=== PATIENT | male | born 1995 | race African-American/Black ===

== ENCOUNTER 2025-09-11 09:21 | Outpatient (REF) | payer MEDICAID, OTHER, SELFPAY ==
[2025-09-11 14:14] LABS: MANUAL DIFF FLAG NO
[2025-09-11 14:25] LABS: Hematocrit 45.5 % (42.0-52.0); Hemoglobin 14.4 g/dl (14.0-18.0); Imm Gran Abs Auto 0.01 X10*3/uL (0.00-0.03); Imm Gran Pct Auto 0.3 % (0.0-0.4); Lymphocytes Absolute Auto 1.1 X10*3/uL (1.2-4.9); Mean Corpuscular HGB Conc 31.6 g/dl (31.0-36.0); Mean Corpuscular Hemoglobin 26.6 pg (27.0-33.0); Mean Corpuscular Volume 84.1 fL (80.0-98.0); NRBC Abs Auto 0.000 X10*3/uL (0.0-0.012); NRBC Pct Auto 0.0 /100WBC (0.0-0.2); Platelet Count 199 X10*3/uL (160-400); Red Blood Count 5.41 X10*6/uL (4.60-5.80); White Blood Count 3.4 X10*3/uL (4.8-10.8)
[2025-09-11 18:37] LABS: Alanine Aminotransferase 26 U/L (0-40); Albumin Level 5.1 g/dL (3.5-5.0); Alkaline Phosphatase 46 U/L (39-117); Anion Gap 12 (12-20); Aspartate Amino Transferase 35 U/L (5-37); Blood Urea Nitrogen 12 mg/dL (9-16); Calcium 9.6 mg/dL (8.4-10.2); Carbon Dioxide 27 mmol/L (22-29); Chloride 104 mmol/L (96-108); Cholesterol 205 mg/dL (<200); Estimated Glomerular Filt Rate > 60; HDL Cholesterol 62 mg/dL (>40); Potassium 4.2 mmol/L (3.3-5.1); Sodium 139 mmol/L (135-145); Total Protein 8.3 g/dL (6.5-8.0); Triglycerides 63 mg/dL (<150)
[2025-09-12 08:57] LABS: HIV Num 1 0.06 S/CO (0.00-0.99); ~HepC Num1 0.22 S/CO (0.00-0.79); ~Hepatitis C Antibody Nonreactive (Nonreactive)
== END 2025-09-11 09:22 | disposition home or self-care (01) ==
LOC: HO.CHCLDS 09:21
DX: Z11.4 Encounter for screening for human immunodeficiency virus [HIV] (principal); Z11.3 Encounter for screening for infections with a predominantly sexual mode of transmission; R00.2 Palpitations; Z76.89 Persons encountering health services in other specified circumstances
CPT/HCPCS: 36415; 80053; 80061; 84443; 85025; 86592; 86803; 87389

== ENCOUNTER → 2025-09-29 09:43 | Outpatient (REF) | payer OTHER, SELFPAY ==
--- OUTSIDE RECORDS SUMMARY | 2025-09-29 10:34 | XMS_ITS | Clinical Summary ---
Author Organization [employer] Address [address] [facility] [address] [place] [address] Care Team Providers Care Apprise Counselor Name Role Phone Jewels Fonseca CNP Primary Care Provider [phone] Allergies No known active allergies Medications No known medications Active Problems No known active problems Encounters Date Type Department Care Team Description 09/10/2025 2:00 PM EST Office Visit [facility] [address] [place] [address] Jewels Fonseca CNP Encounter to establish care (Primary Dx); Palpitations; Encounter for immunization 09/10/2025 Travel 09/09/2025 Travel 09/09/2025 Telephone [facility] [address] [place] [address] Lurdes Gauthier [place] chart prep 08/03/2025 Telephone [facility] [address] [place], [place] [phone] Socrates Soto MD CHW - New Patient Assistance from Last 3 Months Immunizations Immunization Administration Dates Next Due HepB-CpG 09/10/2025 Influenza, seasonal, injectable, preservative fr ee 09/10/2025 Tdap 09/10/2025 Social History Tobacco Use Types Packs/Day Years Used Date Smoking Tobacco: Never Smokeless Tobacco: Never Tobacco Cessation:Counseling Given: Not Answered Alcohol Use Standard Drinks/Week Comments Not Currently 1 (1 standard drink = 0.6 oz pur e alcohol) Depression Answer Date Recorded Patient Health Questionnaire-9 Score 7 09/10/2025 Patient Health Questionnaire-9 Score 7 09/10/2025 Last PHQ-9: Questionnaire Data Not on file 1 11/11/2024 Housing Stability Answer Date Recorded What is your housing situation today? I have indira olson 09/10/[address] you li ve. Do you have problems with any of the following? I am not sure 09/10/2025 Food Insecurity Answer Date Recorded Within the past 12 months, y ou worried that your food would run out before you got money to buy more: Never True 09/10/2025 Within the past 12 months,th e food you bought just didn't last and you didn't have enough money to get more: Never True 01/2025 Transportation Answer Date Recorded In the past 12 months, has l ack of transportation kept you from medical appts, meetings, work or from getting things needed for daily living? No 09/10/2025 Utilities Answer Date Recorded In the past 12 months, has t he electric, gas, oil or water company threatened to shut off services in your home? No 09/10/2025 Depression Answer Date Recorded Patient Health Questionnaire-2 Score 0 09/10/2025 Internet Access Answer Date Recorded Internet Access Q1 Yes 09/10/2025 Internet Access Q2 Not on file 09/10/2025 Sex and Gender Information Value Date Recorded Sex Assigned at Male 09/09/2025 9:28 AM EST Legal Sex Male 1:12 PM EDT Gender Identity Male 09/09/2025 9:28 AM EST Sexual Orientation Straight 09/09/2025 9: 28 AM EST Last Filed Vital Signs Vital Sign Reading Time Taken Comments Blood Pressure 132/76 09/10/2025 2:05 PM EST Pulse 74 09/10/2025 2:05 PM EST Temperature 36.2 C (97.1 F) 09/10/2025 2:05 PM EST Respiratory Rate 16 09/10/2025 2:05 PM EST Oxygen Saturation 96% 09/10/2025 2:05 PM EST Inhaled Oxygen Concentration - - Weight 64.9 kg (143 lb) 09/10/2025 2:05 PM EST Height 172.7 cm (5' 8 ) 09/10/2025 2:05 PM EST Body Mass Index 21.74 09/10/2025 2:05 PM EST Plan of Treatment Upcoming Encounters Date Type Department Care Team (Late st Contact Info) Description 10/13/2025 2:00 PM EST Immunization [facility] [address] [place] [address] 11/11/2025 9:30 AM EST Office Visit [facility] [address] [place] [address] FonsecaJewels, [employer] [address] [place] [address] Health Maintenance Due Date Last Done Comments Family Planning (PISQ) 2008 HPV Vaccines (1 - Male 3-dos e series) 2008 Hepatitis B Vaccines (2 of 2 - CpG 2-dose series) 10/08/2025 09/10/2025 Alcohol/Substance Use Screening 09/10/2026 09/10/2025 COVID-19 Vaccine (1 - 2024-2 6 season) 2026 Postponed from 06/08 (Patient Refused) Depression Screening 09/10/2026 09/10/2025, 09/10/2025 Disability Screening 09/10/2026 09/10/2025 SDOH Screening 09/10/2026 09/10/2025 Tobacco Screening 09/10/2026 09/10/2025 DTaP/Tdap/Td Vaccines (2 - T d or Tdap) 09/10/2035 09/10/2025 Zoster Vaccines (1 of 2) 2043 RSV Patients and Patients Aged 60 years or older (1 - 1-dose 75+ series) 2068 Influenza Vaccine Completed 09/10/2025 HIV Screening Completed 09/11/2025 Hepatitis C Screening Completed 09/11/2025 HIB Vaccines Aged Out No longer eligi ble based on patient's age to complete this topic Hepatitis A Vaccines Aged Out No long er eligible based on patient's age to complete this topic IPV Vaccines Aged Out No longer eligi ble based on patient's age to complete this topic Meningococcal B Vaccine Aged Out No l onger eligible based on patient's age to complete this topic Meningococcal Vaccine Aged Out No monik frankie eligible based on patient's age to complete this topic Pneumococcal Vaccine: Pediatrics (0 to 5 Years) and At-Risk Patients (6 to 49) Years Aged Out No longer eligible b ased on patient's age to complete this topic RSV under 20 months Aged Out No longe r eligible based on patient's age to complete this topic Rotavirus Vaccines Aged Out No longer eligible based on patient's age to complete this topic Procedures Procedure Name Priority Date/Time Associated Diagnosis Comments TSH W/REFLEX TO FT4 Routine 09/11/2025 9 :32 AM EST Palpitations RPR (MONITOR) W/REFL TITER Routine 09/11/2025 9:32 AM EST Encounter to establish care COMPREHENSIVE METABOLIC PANEL Routine 09/11/2025 9:32 AM EST Encounter to establish care HEPATITIS C AB W/REFL TO HCV RNA, QN, PCR Routine 09/11/2025 9:32 AM EST Encounter to establish care HIV 1/2 ANTIGEN/ANTIBODY, FOURTH GENERATION W/RFL Routine 09/11/2025 9:32 AM EST Encounter to establish care LIPID PANEL, STANDARD Routine 09/11/2025 9:32 AM EST Encounter to establish care CBC WITH AUTO DIFFERENTIAL Routine 09/11/2025 9:26 AM EST Encounter to establish care from Last 3 Months Results * TSH W/Reflex to FT4 (09/11/2025 9:32 AM EST) TSH reflex Free T4 1.54 0.32 - 4.0 uIU/mL [facility] Blood Venous blood specimen / Unknown 09/11/2025 9:32 AM EST 09/11/2025 2:09 PM EST [facility] LAB BLOOD ORDERABLES Melony l Result [facility] [address] [place] [phone] * Hepatitis C Antibody with Reflex to HCV, RNA, Quantitative, Real-Time PCR (09/11/2025 9:32 AM EST) Hepatitis C Antibody Nonreactive Nonreactive [facility] Comment:Antibodies to HCV no t detected; does not exclude early acuteHCV infection. Blood Venous blood specimen / Unknown 09/11/2025 9:32 AM EST 09/11/2025 2:09 PM EST [facility] LAB BLOOD ORDERABLES Melony l Result Performing Organization Address [facility] Co de Phone Number [facility] [address] [place] [phone] * RPR (Monitor) with Reflex to??Titer (09/11/2025 9:32 AM EST) RPR (Monitor) w/Refl Titer NON-REACTI VE NON-REACT MATA [facility] Comment:THIS TEST WAS PERFOR MED AT:[employer] [place] [phone] OLIVERA MD Rapid Plasma Reagin Ab Titer TNP [facility] Blood Venous blood specimen / Unknown 09/11/2025 9:32 AM EST 09/11/2025 2:09 PM EST [facility] LAB BLOOD ORDERABLES Melony l Result Performing Organization Address [facility] de Phone Number [facility] [address] [place] [phone] * HIV-1/2 Antigen and Antibodies, Fourth Generation, with Reflexes (09/11/2025 9:32 AM EST) HIV AB/AG Nonreactive Nonreactive [facility] Comment:HIV-1 p24 Ag and/or HIV-1/HIV-2 Ab not detected.A test result that is nonreactive does not exclude thepossibility of exposure to or infection with HIV-1 and/orHIV-2. Nonreactive results in this assay for individualswith prior exposure to HIV-1 and/or HIV-2 may be due toantigen and antibody levels that are below the limit ofdetection of this assay.The [employer] HIV Ag/Ab Combo assay result andsupplemental assay results should be interpreted inconjunction with the patient's clinical presentation,history and other laboratory results. If the results areinconsistent with clinical evidence, additional testing issuggested to confirm the result. Blood Venous blood specimen / Unknown 09/11/2025 9:32 AM EST 09/11/2025 2:09 PM EST [facility] LAB BLOOD ORDERABLES Melony l Result Performing Organization Address [facility] de Phone Number [facility] [address] [place] [phone] * (ABNORMAL) Lipid Panel, Standard (09/11/2025 9:32 AM EST) Triglycerides 63 <150 mg/dL [facility] Comment:Desirable Triglyceri de: less than 150 mg/dLBorderline High Triglyceride 150-199 mg/dLHigh Triglyceride: 200-499 mg/dLVery High Triglyceride: greater than or equal to 5OO mg/dL Cholesterol 205(H) <200 mg/dL [facility] Comment:Desirable Cholestero l: less than 200 mg/dLBorderline High Cholesterol: 200-239 mg/dLHigh Cholesterol: greater than 239 mg/dL LDL Cholesterol Calculated 131(H) <100 mg/dL [facility] Comment:Desirable LDL: less than 100 mg/dLNear Optimal/Above Optimal LDL: 110- 129 mg/dLBorderline High LDL: 130-159 mg/dLHigh LDL: 160-189 mg/dLVery High LDL: greater than or equal to 190 mg/dL HDL Cholesterol 62 >40 mg/dL [facility] Comment:Desirable HDL: great er than 40 mg/dL Note: This HDL assay may give artificially low results in patients with liver disease. Blood Venous blood specimen / Unknown 09/11/2025 9:32 AM EST 09/11/2025 2:09 PM EST [facility] LAB BLOOD ORDERABLES Melony l Result Performing Organization Address [facility] Co de Phone Number [facility] [address] [place] [phone] * (ABNORMAL) Comprehensive Metabolic Panel (09/11/2025 9:32 AM EST) Sodium 139 135 - 145 mmol/L [facility] Potassium 4.2 3.3 - 5.1 mmol/L [facility] Comment:Slight Hemolysis.Int erpret result with caution. Chloride 104 96 - 108 mmol/L [facility] Carbon Dioxide 27 22 - 29 mmol/L [facility] Anion Gap 12 12 - 20 [facility] Urea Nitrogen (BUN) 12 9 - 16 mg/dL [facility] Creatinine, Serum 0.90 0.5 - 1.4 mg/dL [facility] Estimated Glomerular Filt Rate >60 [facility] Comment:Chronic Kidney Disea se: Estimated GFR < 60 mL/min/[id number] Kidney Disease: Estimated GFR < 15 mL/min/1.73m2 Glucose 79 60 - 115 mg/dL [facility] Calcium 9.6 8.4 - 10.2 mg/dL [facility] Bilirubin, Total 1.7(H) 0.0 - 1.0 mg/dL [facility] Comment:Slight Icterus. Aspartate Amino Transferase 35 5 - 37 U/L [facility] Comment:Slight Hemolysis.Int erpret result with caution. Alanine Aminotransferase 26 0 - 40 U/L [facility] Total Protein 8.3(H) 6.5 - 8.0 g/dL [facility] Albumin Level 5.1(H) 3.5 - 5.0 g/dL [facility] Alkaline Phosphatase 46 39 - 117 U/L [facility] Blood Venous blood specimen / Unknown 09/11/2025 9:32 AM EST 09/11/2025 2:09 PM EST Jewels Fonseca [facility] LAB BLOOD ORDERABLES Melony l Result [facility] [address] [place] [phone] * (ABNORMAL) CBC auto differential (09/11/2025 9:26 AM EST) White Blood Count 3.4(L) 4.8 - 10.8 X10*3/uL [facility] Red Blood Count 5.41 4.60 - 5.80 X10*6/uL [facility] Hemoglobin 14.4 14.0 - 18.0 g/dl [facility] Hematocrit 45.5 42.0 - 52.0 % [facility] Mean Corpuscular Volume 84.1 80.0 - 98.0 fL [facility] Mean Corpuscular Hemoglobin 26.6(L) 27.0 - 33.0 pg [facility] Mean Corpuscular HGB Conc 31.6 31.0 - 36.0 g/dl [facility] Red Cell Distribution Width 13.5 11.0 - 16.0 % [facility] Platelet Count 199 160 - 400 X10*3/uL [facility] Mean Platelet Volume 10.9 9.4 - 12.4 fL [facility] Neutrophils Percent Auto 54.7 45 - 73 % [facility] Imm Gran Pct Auto 0.3 0.0 - 0.4 % [facility] Lymphocytes Percent Auto 32.1 20 - 40 % [facility] Monocytes Percent Auto 11.4(H) 2 - 11 % [facility] Eosinophils Percent Auto 0.9 0 - 4 % [facility] Basophils Percent Auto 0.6 0 - 2 % [facility] NRBC Pct Auto 0.0 0.0 - 0.2 /100WBC [facility] Neutrophils Absolute Auto 1.9(L) 2.0 - 8.3 x10*3/uL [facility] Imm Gran Abs Auto 0.01 0.00 - 0.03 X10*3/uL [facility] Lymphocytes Absolute Auto 1.1(L) 1.2 - 4.9 X10*3/uL [facility] Monocytes Absolute Auto 0.4 0.1 - 1.2 X10*3/uL [facility] Eosinophils Absolute Auto 0.0 0.0 - 0.4 X10*3/uL [facility] Basophils Absolute Auto 0.0 0.0 - 0.2 X10*3/uL [facility] NRBC Abs Auto 0.000 0.0 - 0.012 X10*3/uL [facility] Blood Venous blood specimen / Unknown 09/11/2025 9:26 AM EST 09/11/2025 2:09 PM EST Jewels Fonseca [employer] LAB BLOOD ORDERABLES Melony l Result [facility] [address] [place] [phone] from Last 3 Months Insurance [facility] Care Teams Apprise Counselor Relationship Specialty Start Date End Date Jewels Fonseca CNP [address] [place] [phone] PCP - General Family Medicine 09/10/25
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
== END ==
LOC: HO.CARD 09:43
DX: R00.2 Palpitations (principal)
CPT/HCPCS: 93225

== ENCOUNTER → 2025-09-29 09:50 | Outpatient (BNV) | payer OTHER, SELFPAY | PROVIDERS: Visit Provider Internal Medicine | DX: R00.2 Palpitations (principal) | CPT/HCPCS: 93227 ==